=== PATIENT | male | born 1975 ===

== ENCOUNTER 2019-09-17 08:22 | Outpatient (CLI) | payer MEDICAID, SELFPAY ==
[2019-09-18 01:58] LABS: COVID-19 RT-PCR UVMMC Result Negative (Negative)
== END 2019-09-17 08:42 ==
PROVIDERS: Visit Provider Family Medicine
DX: Z20.828 Contact with and (suspected) exposure to other viral communicable diseases (principal)
CPT/HCPCS: U0003